=== PATIENT | female | born 1995 | race Hispanic/Latino ===

== ENCOUNTER 2019-06-21 20:58 | Emergency (ER) | payer MEDICAID ==
[2019-06-21] MEDS ORDERED: ACETAMINOPHEN EXTRA STRENGTH 500 MG TABLET ONE (21:20)
[2019-06-21] MEDS ORDERED: SODIUM CHLORIDE 0.9% 1000ML 1,000 ML IV ONE (22:26)
[2019-06-21 22:36] LABS: BASOPHILS % (AUTO) 0.5 % (0.0-5.0); EOSINOPHILS % (AUTO) 0.4 % (0.0-8.0); HEMATOCRIT 34.5 % (36-48); LYMPHOCYTES % (AUTO) 17.7 % (21.0-51.0); MEAN CORPUSCULAR HEMOGLOBIN 24.3 pg (27.0-33.0); MEAN CORPUSCULAR HGB CONC 33.7 g/dL (32.0-36.0); MEAN CORPUSCULAR VOLUME 72.2 fL (79-99); MONOCYTES % (AUTO) 6.4 % (3.0-13.0); PLATELET COUNT (AUTO) 338 K/uL (130-400); RED BLOOD CELL COUNT(AUTO) 4.77 MIL/uL (4.00-5.50); RED CELL DISTRIBUTION WIDTH 14.6 % (11.0-15.5); WHITE BLOOD COUNT (AUTO) 9.9 K/uL (4.8-10.8)
[2019-06-21 22:39] LABS: APPEARANCE,URINE Clear (CLEAR); BILIRUBIN,URINE Negative (NEGATIVE); COLOR,URINE Yellow (YELLOW); GLUCOSE, URINE (UA) Negative (NEGATIVE); KETONES,URINE Negative (NEGATIVE); LEUKOCYTE ESTERASE ,URINE Moderate (NEGATIVE); NITRATE,URINE Negative (NEGATIVE); OCCULT BLOOD,URINE Negative (NEGATIVE); PROTEIN,URINE Negative (NEGATIVE); UROBILINOGEN,URINE 0.2 mg/dL (0.2-1.0)
[2019-06-21 22:40] LABS: CREATININE 0.8 mg/dL (0.5-1.5); POTASSIUM 3.5 mmol/L (3.5-5.1)
[2019-06-21 22:44] LABS: ALBUMIN 3.7 g/dL (3.5-5.0); BILIRUBIN,TOTAL 0.3 mg/dL (0.2-1.0); CRP QUANTITATIVE 29.1 mg/L (0.00-9.0); TOTAL PROTEIN, SERUM 8.6 g/dL (6.0-8.3)
[2019-06-21 22:46] LABS: HCG,QUAL RESULT NEGATIVE (NEGATIVE)
[2019-06-21 23:07] LABS: BACTERIA,URINE Few /HPF (None Seen); RBC,URINE 0-1 /HPF (0-1); SQUAMOUS EPITHELIAL CELL,UR Moderate /HPF (0-2)
[2019-06-21] MEDS ORDERED: KETOROLAC TROMETHAMINE 30MG/ML ONE (23:12)
[2019-06-21 23:41] LABS: ERYTHROCYTE SEDIMENTATION RATE 68 MM/HR (0-20)
[2019-06-22] MEDS ORDERED: CLINDAMYCIN 600 MG/D5% WATER 50 ML IV ONE (00:26)
== END 2019-06-22 00:47 | disposition home or self-care (01) ==
LOC: EDH 20:58
DX: S80.262A Insect bite (nonvenomous), left knee, initial encounter (principal); S80.261A Insect bite (nonvenomous), right knee, initial encounter; L08.9 Local infection of the skin and subcutaneous tissue, unspecified; R50.9 Fever, unspecified; R05 Cough; W57.XXXA Bitten or stung by nonvenomous insect and other nonvenomous arthropods, initial encounter; Y93.89 Activity, other specified; Y92.89 Other specified places as the place of occurrence of the external cause; Y99.8 Other external cause status
CPT/HCPCS: 36415; 73562 ×2; 80053; 81001; 81025; 85025; 85651; 86140; 87040 ×2; 87804 ×2; 96374; 96375; 99285; J1885; J3490; J7030

== ENCOUNTER 2024-08-08 06:57 | Emergency (ER) | payer MEDICAID ==
[~2024-08-08] VITALS: Ht 167.6 cm; Wt 99.8 kg
[2024-08-08 07:20] LABS: BASOPHILS # (AUTO) 0.03 K/uL (0.00-0.20); BASOPHILS % (AUTO) 0.2 % (0.0-5.0); EOSINOPHILS # (AUTO) 0.06 K/uL (0.00-0.70); EOSINOPHILS % (AUTO) 0.4 % (0.0-8.0); HEMATOCRIT 37.8 % (36-48); IMMATURE GRANULOCYTE ABSOLUTE 0.04 K/uL (0-1); LYMPHOCYTES # (AUTO) 0.9 K/uL (1.0-4.8); LYMPHOCYTES % (AUTO) 6.6 % (21.0-51.0); MEAN CORPUSCULAR HEMOGLOBIN 23.9 pg (27.0-33.0); MEAN CORPUSCULAR VOLUME 74.6 fL (79-99); MONOCYTES % (AUTO) 7.5 % (3.0-13.0); NEUTROPHILS # (AUTO) 11.4 K/uL (1.8-7.7); PLATELET COUNT (AUTO) 255 K/uL (130-400); RED BLOOD CELL COUNT(AUTO) 5.07 MIL/uL (4.00-5.50); RED CELL DISTRIBUTION WIDTH 14.7 % (11.0-15.5); WHITE BLOOD COUNT (AUTO) 13.4 K/uL (4.8-10.8)
[2024-08-08 07:26] VITALS: TEMP 103.3
[2024-08-08] MEDS: 0.9%NACL 1000ML 1,000 ML IV ONE (07:26)
[2024-08-08] MEDS: acetaMINOPHEN 325 MG TAB PO ONE (07:26)
[2024-08-08] MEDS: ondanSETRON 4MG INJ IVP ONE (07:26)
[2024-08-08 07:30] LABS: CREATININE 0.9 mg/dL (0.5-1.0); POTASSIUM 3.6 mmol/L (3.5-5.1)
[2024-08-08 07:36] LABS: RAPID GROUP A STREP negative (NEGATIVE)
[2024-08-08 07:46] LABS: INFLUENZA TYPE A Negative For Type A (NEGATIVE); INFLUENZA TYPE B Negative For Type B (NEGATIVE)
--- NOTE | 2024-08-08 08:20 | NUR ---
08:21 pending exam, LMP 05/2024
--- NOTE | 2024-08-08 08:38 | NUR ---
PENDING TEST RESULTS, IV SITE, & CONSENT FOR CT EXAM.
--- NOTE | 2024-08-08 08:52 | ERN ---
General Chief Complaint: Sepsis Stated Complaint: FEVER, " BALL" IN THROAT Time Seen by MD: 06:59 History of Present Illness Initial Comments 29-year-old female presents for sore throat and fever x4 days. Patient developed sore throat about four days ago, she has had a fever since. She had an episode of vomiting. No cough congestion abdominal pain diarrhea rhinorrhea earache or other symptoms. She went to the PCP yesterday was started on Augmentin, she has taken a couple of doses of this. She presents this morning because she reports that she feels like her throat is getting worse, and she feels a mass on the left side. Medical history: Diabetes, fatty liver Denies surgical history, denies . Allergies: Coded Allergies: No Known Drug Allergies (Unverified Allergy, Unknown, 06/22/19) Past Medical History Past Medical History: Other Medical History Other: HEARING, LEFT COCHLEAR IMPLANT Past Surgical History: Other Surgical History Other: LEFT COCHLEAR IMPLANT Female( History) LMP: May 13, 2024 ROS Dictation CONSTITUTIONAL: Fever HEAD/FACE: No signs of trauma. EENT: Sore throat RESPIRATORY: No cough, no orthopnea, no SOB, no stridor, no wheezing. CARDIOVASCULAR: No chest pain, no edema, no palpitations, no syncope. GASTROINTESTINAL/ABDOMINAL: No abdominal pain, no constipation, no diarrhea, no nausea, no vomiting. GENITOURINARY: No abnormal discharge, no dysuria, no frequent urination, no hematuria. No complaints of pain in the genitals. MUSCULOSKELETAL: No back pain, no gout, no joint pain, no joint swelling, no muscle pain, no muscle stiffness, no neck pain. INTEGUMENTARY: No change in color, no change in hair/nails, no dryness, no lesion, no lumps, no rash. NEUROLOGICAL/PSYCH: No anxiety, not depressed, no emotional problem, no headache, no numbness, no pre-existing deficit, no history of seizures, no tremors, no weakness. HEMATOLOGIC/LYMPHATIC: Not anemic, no history of blood clots, no apparent bleeding, no bruising, glands not swollen. All Systems Negative, Except as Noted. Physical Exam Physical Exam Dictation VITAL SIGNS: Reviewed. GENERAL APPEARANCE: Moderate distress due to pain, obese. HEAD AND FACE: Non-traumatic. EYES: PERRL, pink conjunctivas, eyelid no trauma, anterior chamber clear. EARS: Pinnas intact and no signs of trauma or erythema. Ear canals clear and no discharge. TMs no erythema. NOSE: No discharge, no bleeding. OROPHARYNX: Bilateral tonsillar edema and swelling with some exudate. Enlarged, no obvious abscess or asymmetry. It does appear to have other lymph node or abscess on external exam of the left external throat NECK: Supple, non-tender, no thyromegaly, no masses, no JVD, no bruits. BREAST: Deferred. CHEST: No tenderness, no crepitus, no paradoxical movement, no retractions. LUNGS: Clear, well-ventilated, symmetric, no rales, no wheezing, no rhonchi, no stridor, good breath sounds bilaterally. HEART: Regular rate, regular rhythm, no murmur, no gallops. VASCULAR: No peripheral edema. ABDOMEN: Soft, positive bowel sounds, nondistended, no guarding, nontender, no rebound, no masses no hepatomegaly, no splenomegaly, no Chilel's sign, no hernias. RECTAL: Deferred. GENITAL: Deferred. NEUROLOGICAL: Normal speech, gross motor function intact, gross sensory function intact. MUSCULOSKELETAL: Neck nontender, full range of motion, back nontender, full range of motion. EXTREMITIES: Nontender, full range of motion. SKIN: Color pink, dry, no turgor, no rash, no lacerations, no abrasions, no contusions. LYMPHATICS: Deferred. Results Laboratory and Microbiology Lab and Micro Result Laboratory Tests Test 08/08/24 07:08 08/08/24 07:10 White Blood Count 13.4 K/uL (4.8-10.8) H Red Blood Count 5.07 MIL/uL (4.00-5.50) Hemoglobin 12.1 g/dL (12.0-16.0) Hematocrit 37.8 % (36-48) Mean Corpuscular Volume 74.6 fL (79-99) L Mean Corpuscular Hemoglobin 23.9 pg (27.0-33.0) L Mean Corpuscular Hemoglobin Concent 32.0 g/dL (32.0-36.0) Red Cell Distribution Width 14.7 % (11.0-15.5) Platelet Count 255 K/uL (130-400) Mean Platelet Volume 10.4 fL (7.5-10.5) Immature Granulocyte % (Auto) 0.3 % (0-1) Neutrophils (%) (Auto) 85.0 % (40.0-77.0) H Lymphocytes (%) (Auto) 6.6 % (21.0-51.0) L Monocytes (%) (Auto) 7.5 % (3.0-13.0) Eosinophils (%) (Auto) 0.4 % (0.0-8.0) Basophils (%) (Auto) 0.2 % (0.0-5.0) Neutrophils # (Auto) 11.4 K/uL (1.8-7.7) H Lymphocytes # (Auto) 0.9 K/uL (1.0-4.8) L Monocytes # (Auto) 1.0 K/uL (0.1-1.0) Eosinophils # (Auto) 0.06 K/uL (0.00-0.70) Basophils # (Auto) 0.03 K/uL (0.00-0.20) Absolute Immature Granulocyte (auto 0.04 K/uL (0-1) Nucleated Red Blood Cells 0.0 % (0.0-0.19) White Cell Morphology Comment See comments Red Blood Cell Morphology See comments Sodium Level 131 mmol/L (136-145) L Potassium Level 3.6 mmol/L (3.5-5.1) Chloride Level 96 mmol/L (101-111) L Carbon Dioxide Level 26 mmol/L (21-32) Blood Urea Nitrogen 10 mg/dL (7-18) Creatinine 0.9 mg/dL (0.5-1.0) Glomerular Filtration Rate Calc 88 mL/min (>90) Random Glucose 133 mg/dL (70-105) H Lactic Acid Level 1.7 mmol/L (0.8-2.5) Total Calcium 9.0 mg/dL (8.5-10.1) Troponin I High Sensitivity 13 ng/L (4-50) Lipase 44 U/L (16-77) Serum Test, Qualitative NEGATIVE (NEGATIVE) Influenza Type A Antigen Negative For Type A Influenza Type B Antigen Negative For Type B SARS-CoV-2 Antigen (Rapid) PRESUMPTIVE NEGATIVE Group A Streptococcus Rapid negative (NEGATIVE) MDM CC: fever, sore throat, enlarged tonsils Comorbidities: None Historian: Patient Limitations: None Initial concern for a pharyngitis, abscess, retropharyngeal abscess, other Initial heart rate 140, temp 103.3. These improved in the ER with treatment of fluids. CBC shows leukocytosis with a left shift. No bands. Chemistry shows some dehydration sodium 131 chloride 96, lactic acid is stable troponin stable hCG is negative lipase is normal. Flu swab was negative Chest x-ray per my interpretation shows no cardiomegaly, no pleural effusions, no focal infiltrates. CT of the soft tissue neck with contrast does not show any obvious abscesses. This was an independently interpreted by me. The radiologist confirmed no abscesses. EKG: Sinus tachycardia rate 135 left axis deviation good R-wave progression intervals are stable no STEMI. Interpreted by me. Patient received 2 L of normal saline, 4 mg of IV Zofran, and 650 mg of Tylenol. On re-evaluation patient has improved. She is stable. She is taking Augmentin as an outpatient, we will recommend that she continues with this. We will recommend that she takes Tylenol and ibuprofen. Make sure she drinks plenty of liquids. PATIENT: JOSE ALEXANDRA MR#: [id number] : 1995 SEX: F AGE: 29 LOCATION: ED ORDER 1 STATUS: [facility] REPORT#: [id number] SERVICE 0 REASON: sore throat concern for abscess ORDERING PHYSICIAN: FORTINO ELIAS DO PROCEDURE: NKSOFTI W - CT NECK SOFT TISS W/CONTRAST Exam Type: CT NECK SOFT TISS W/CONTRAST Clinical Information: sore throat concern for abscess Comparison: None CT Dose Index (CTDI): 7.98 mGy Dose Length Product (DLP): 178.1 total mGy-cm PROTOCOL: Photography is done at 3.8 millimeter thick intervals for the head. The study was performed in the axial plane, and reconstructed and photographed in sagittal and coronal planes as well. Findings: No lymphadenopathy is seen. No fluid collections or masses are identified. The vascular, muscular, as well as subcutaneous structures are preserved. No significant paranasal sinus pathology is seen. There is status post partial antral mastectomy in the left side with cochlear implant placement. The hardware is in place and appears intact. There are no significant upper airway abnormalities. IMPRESSION: No abscess seen. Other findings as described. This study was performed using dose reduction techniques to include automated exposure control and/or adjustment of the mA and/or kV according to patient size. DICTATED BY: JOHNATHAN CONNOLLY MD DATE: 08/08/24 102 ELECTRONICALLY SIGNED BY: JOHNATHAN CONNOLLY MD DATE: 08/08/24 1025 MDM: Differential diagnosis: As above Rationale: Tests considered and ordered secondary to shared decision making include: None Previous outside records reviewed: Old ER visits. Risk of complication and/or morbidity or mortality of patient management: None Medications-Per medication reconciliation Need for hospitalization: Patient does not meet criteria for hospitalization. Need for emergency major/minor surgery: No There are no social concerns with this patient. Prescription drug management Prescriptions will include symptomatic care Patient's prior external medical records from other ER visits were reviewed by me as indicated. Prior testing and results from previous visits were reviewed. Prior tests were taken into account with medical decision making and resource utilization, independent historian/historians were used to obtain complete medical history. I independently interpreted the test that were performed, results were reviewed by me and considered findings on radiology if ordered. Medical management and examination interpretation discussions were had by me with other qualified healthcare professionals as indicated for the patient's care. ED Course Orders Procedure Category Date Status Time Cbc With Differential LAB 08/08/24 Complete 07:06 Troponin I High LAB 08/08/24 Complete Sensitivity 07:06 ,Urine Test LAB 08/08/24 Logged 07:06 Urinalysis Profile LAB 08/08/24 Logged 07:06 0.9%Nacl 1000ml (Ns PHA 08/08/24 Complete 1000ml) 07:30 Acetaminophen 325 Tab PHA 08/08/24 Complete (Tylenol 325mg Tab 07:30 Ondansetron 4mg Inj PHA 08/08/24 Complete (Zofran 4mg Inj) 07:30 Chest 1vw RAD 08/08/24 Taken 07:06 Lipase LAB 08/08/24 Complete 07:06 Basic Metabolic Panel LAB 08/08/24 Complete 07:06 Blood Cult EZRA 08/08/24 In Process 07:06 Lactic Acid LAB 08/08/24 Complete 07:06 Rapid (Group A Strep) LAB 08/08/24 Complete 07:06 Influenza Type A & B, LAB 08/08/24 Complete Rapid 07:06 Covid19 (Sars Antigen LAB 08/08/24 Complete Rapid) 07:24 12 Lead Ekg Tracing- EKG 08/08/24 Logged Technical 07:[address] Neck Soft Tiss CT 08/08/24 Resulted W/Contrast 08:11 Testing, LAB 08/08/24 Complete Serum Hcg 08:51 0.9%Nacl 1000ml (Ns PHA 08/08/24 In Process 1000ml) 09:00 Iohexol (Omnipaque) PHA 08/08/24 Complete 10:03 Current Medications Medications (Trade) Dose Ordered Sig/Christel Route PRN Reason Start Time Stop Time Status Last Admin Dose Admin Acetaminophen (TYLenol 325MG TAB) 650 mg ONCE ONCE PO 08/08/24 07:30 08/08/24 07:31 DC 08/08/24 07:26 Iohexol (Omnipaque) 50 ml STK-MED ONCE IV 08/08/24 10:03 08/08/24 10:03 DC Ondansetron HCl (zoFRAN 4MG INJ) 4 mg ONCE ONCE IVP 08/08/24 07:30 08/08/24 07:31 DC 08/08/24 07:26 Sodium Chloride 1,000 ml @ 0 mls/hr ONCE ONCE IV 08/08/24 07:30 08/08/24 07:31 DC 08/08/24 07:26 Sodium Chloride 1,779 ml @ 593 mls/hr ONCE ONCE IV 08/08/24 09:00 08/08/24 11:59 08/08/24 08:56 Vital Signs Date Time Temp Pulse Resp B/P (MAP) Pulse Ox O2 Delivery O2 Flow Rate FiO2 08/08/24 07:26 103.3 08/08/24 07:05 103.3 140 24 120/67 99 Room Air* 0 21 08/08/24 06:59 102.9 148 20 119/73 96 Room Air DX & DISP Disposition: Discharge Departure Impression: Primary Impression: Pharyngitis Condition: Stable Additional Instructions: Your symptoms are consistent with pharyngitis. This may be caused by a virus or bacteria. Continue taking the Augmentin (amoxicillin-clavulanic acid) antibiotic. Take this as prescribed. Alternate 800 mg of ibuprofen and 1000 mg of Tylenol every 4 hours as needed for pain or fever. These medications are [id number]. Be sure to drink plenty of cool liquids. Popsicles or Gatorade or good choices. Advance her diet slowly as tolerated. The CT scan of your neck does not show any abscesses or major abnormalities. Your lab work shows signs of general infection but are otherwise unremarkable. You also had some mild dehydration in the labs. You received IV fluids, Zofran, and Tylenol here in the emergency department. Please follow up with your primary doctor in 48 hours for re-evaluation. Please return to the emergency department sooner if you have any concerns. Referrals: WALI PEARSON (PCP) FORTINO ELIAS DO Aug 08, 2024 08:52
[2024-08-08] MEDS: 0.9%NACL 1000ML 1,779 ML IV ONE (08:56)
--- NOTE | 2024-08-08 09:30 | NUR ---
ATTEMPT TO COLLECT UA, PER FAMILY MEMBER PT WITH OUT THE URGE TO VOID. WILL ATTEMPT AFTER NS BOLUS COMPLETE.
[2024-08-08] MEDS ORDERED: IOHEXOL-350 50ML VIAL IV ONE (10:03)
--- NOTE | 2024-08-08 10:25 | HMCIMG ---
Exam Type: CT NECK SOFT TISS W/CONTRAST Clinical Information: sore throat concern for abscess Comparison: None CT Dose Index (CTDI): 7.98 mGy Dose Length Product (DLP): 178.1 total mGy-cm PROTOCOL: Photography is done at 3.8 millimeter thick intervals for the head. The study was performed in the axial plane, and reconstructed and photographed in sagittal and coronal planes as well. Findings: No lymphadenopathy is seen. No fluid collections or masses are identified. The vascular, muscular, as well as subcutaneous structures are preserved. No significant paranasal sinus pathology is seen. There is status post partial antral mastectomy in the left side with cochlear implant placement. The hardware is in place and appears intact. There are no significant upper airway abnormalities. IMPRESSION: No abscess seen. Other findings as described. This study was performed using dose reduction techniques to include automated exposure control and/or adjustment of the mA and/or kV according to patient size.
--- NOTE | 2024-08-08 10:40 | NUR ---
30 ML/KG BOLUS COMPLETE AND ATTEMPTED TO COLLECT UA. PT WAS IN THE RESTROOM FOR SEVERAL MINUTES AND UNABLE TO VOID. OFFERED TO COLLECT UA WITH IN AND OUT CATH BUT PT REFUSED AND REQUESTED WATER TO ATTEMPT AGAIN IN A FEW MINUTES.
--- NOTE | 2024-08-08 11:24 | HMCIMG ---
Exam Type: CHEST 1VW Clinical Information: sepsis Comparison: None Findings: The lungs are clear of infiltrates. The heart is normal in size. The bony and soft tissue structures of the chest are unremarkable. Impression: Clear lungs.
[2024-08-08 11:36] VITALS: BP 110/72; PULSE 98; RESP 20; TEMP 98.9; O2SAT 97
--- NOTE | 2024-08-09 06:13 | EKG ---
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
== END 2024-08-08 12:12 | disposition home or self-care (01) ==
LOC: EDH 06:57
DX: J02.9 Acute pharyngitis, unspecified (principal); E11.9 Type 2 diabetes mellitus without complications; Z20.822 Contact with and (suspected) exposure to COVID-19; Z98.890 Other specified postprocedural states
CPT/HCPCS: 99285; 96374; 70491; 96361; 71045; 87426; 84484; 80048; 84703; 83690; 85025; 87040 ×2; 87880; 87804 ×2; 83605; 36415; 93005; J7030 ×2; J2405; Q9967